=== PATIENT | male | born 1940 | race Caucasian/White ===

== ENCOUNTER 2019-08-05 12:22 | Day surgery (SDC) | payer MEDICARE, OTHER ==
[~2019-08-05 12:22] MED LIST: Lactated Ringers 1,000 ML IV SCH; Sodium Chloride 0.9% 10 ML Syringe FLUSH PRN
[2019-08-05] MEDS ORDERED: Midazolam 1 MG/ML 2 ML SDV ONE ×2 (14:25→14:27)
[2019-08-05] MEDS ORDERED: Propofol 200 MG/20 ML SDV ONE ×2 (14:25→14:27)
--- NOTE | 2019-08-05 14:27 | PCM.PN ---
- General Info Date of Service: 08/05/19 - Review of Systems Systems Review Comment:: 78 y/o male here for Colonoscopy. He has a history of colon polyps. His last colonoscopy was 5 years ago. the patient is medically stable to proceed today. I have reviewed his recent history and physical and no significant changes are noted. I discussed the proposed colonoscopy with the patient. Risks such as but not limited to bleeding and GI injury reviewed. He agrees to proceed. - Patient Data Vitals - Most Recent: Last Vital Signs Temp 99.0 F 08/05/19 13:10 Pulse 56 L 08/05/19 13:10 Resp 18 08/05/19 13:10 BP 145/64 H 08/05/19 13:10 Pulse Ox 96 08/05/19 13:10 Weight - Most Recent: 117.027 kg Med Orders - Current: Current Medications Lactated Ringer's (Ringers, Lactated) 1,000 mls @ 125 mls/hr IV ASDIRECTED [facility] Last Admin: 08/05/19 13:22 Dose: 125 mls/hr Sodium Chloride (Saline Flush) 10 ml FLUSH ASDIRECTED PRN PRN Reason: Keep Vein Open - Problem List Review Problem List Initiated/Reviewed/Updated: Yes - Assessment Assessment:: history of colon polyps - Plan Plan:: colonoscopy
--- NOTE | 2019-08-05 15:15 | PCM.OPNOTE ---
- General Post-Op/Procedure Note Date of Surgery/Procedure: 08/05/19 Operative Procedure(s): Colonoscopy with Polypectomy Findings: Multiple Colon Polyps Pre Op Diagnosis: history of colon polyps Post-Op Diagnosis: Colon Polyps Anesthesia Technique: MAC Primary Surgeon: Manny Odell Pathology: Colon Polyps EBL in mLs: 0 Complications: None Condition: Good
--- NOTE | 2019-08-05 19:41 | OR ---
Date of Procedure: 08/05/2019 PREOPERATIVE DIAGNOSIS: History of colon polyps. POSTOPERATIVE DIAGNOSES: Colon polyps. OPERATION PERFORMED: Colonoscopy with polypectomy. INDICATIONS FOR SURGERY: This 78-year-old male has a known history of colon polyps. He comes today for surveillance colonoscopy. FINDINGS: Three polyps were seen on today's exam. There is an 8 mm sessile polyp in the descending colon 50 cm from the anal verge. There is another proximally 1 cm sessile polyp noted at the hepatic flexure and a 7 mm semi- pedunculated polyp noted in the proximal transverse colon. The colon otherwise appears normal. DESCRIPTION OF PROCEDURE: The patient was taken to the operating room. He was given intravenous sedation and with him in the left lateral decubitus position, digital rectal exam was performed showing no rectal masses. The Olympus colonoscope was inserted into the rectum and retroflexed examination of the rectal canal was performed. The scope was then carefully advanced under direct visualization through the entire length of the colon until the cecum was reached. During insertion of the scope, the above-described polyps were identified. These were each removed with a cautery snare and retrieved into a polyp trap. The scope was able to be advanced to the cecum and cecal identity is confirmed by noting normal internal cecal anatomy including the appendiceal orifice and ileocecal valve. After examining the cecum, the scope was slowly withdrawn sequentially re-examining the colonic segments until the entire colon and rectum had been fully examined. The scope was removed and the patient was taken from the operating room in satisfactory condition. ESTIMATED BLOOD LOSS: 0. COMPLICATIONS: None. PROGNOSIS: Good. KSENIA Odell MD /[id number]
== END 2019-08-05 15:50 | disposition home or self-care (01) ==
LOC: LL.SDS 12:22
PROVIDERS: ATTEND Surgery
DX: Z12.11 Encounter for screening for malignant neoplasm of colon (principal); D12.4 Benign neoplasm of descending colon; D12.3 Benign neoplasm of transverse colon; J44.9 Chronic obstructive pulmonary disease, unspecified; I10 Essential (primary) hypertension; E78.5 Hyperlipidemia, unspecified; Z86.010 Personal history of colon polyps; Z79.82 Long term (current) use of aspirin; Z79.899 Other long term (current) drug therapy; Z79.1 Long term (current) use of non-steroidal anti-inflammatories (NSAID); Z87.891 Personal history of nicotine dependence
CPT/HCPCS: 00812; J2250; J2704; J7120

== ENCOUNTER 2020-05-07 16:14 | Emergency (ER) | payer MEDICARE, OTHER ==
[2020-05-07] MEDS ORDERED: Sodium Chloride 0.9% 10 ML Syringe FLUSH PRN (16:30)
[2020-05-07] MEDS ORDERED: Aspirin 81 MG Tab.Chew PO ONE (16:50)
--- NOTE | 2020-05-07 18:03 | EDM.PDOC ---
ED HPI GENERAL MEDICAL PROBLEM - General Chief Complaint: General Stated Complaint: DIZZINESS, WEAKNESS, CLAMMINESS Time Seen by Provider: 05/07/20 16:50 Source of Information: Reports: Patient, Family History Limitations: Reports: No Limitations - History of Present Illness INITIAL COMMENTS - FREE TEXT/NARRATIVE: brief episode of feeling clammy/mild nausea/dizzy/zoning out in front of TV movie that he and his were watching. noticed that he was sweating and asked him what was wrong. He answered he didn't feel right. She remembers that he then ate a few cookies from a tin sitting by his chair. They decided to bring him to the ER for evaluation. No other accompanying symptoms. He reports feeling back to baseline by time he arrived in ER. Also reports brief similar episode a week ago that resolve quickly. Normal day otherwise for patient. Has been feeling like usual self. No new meds/supplements. No sick contacts. No history of RI. - Related Data Allergies Allergy/AdvReac Type Severity Reaction Status Date / Time No Known Allergies Allergy Verified 02/10/14 09:57 Home Meds: Home Meds Aspirin 81 mg PO Q72H 02/16/14 [History] Fish Oil/[place]-3 Fatty Acids [Fish Oil 1,000 MG] 1 each PO DAILY 02/16/14 [History] NIFEdipine [Nifediac CC] 90 mg PO DAILY 02/16/14 [History] Arformoterol [Brovana] 1 puff INH BID 08/05/19 [History] Budesonide [Pulmicort] 0.5 mg IH BID 08/05/19 [History] Celecoxib [CeleBREX] 100 mg PO DAILY 08/05/19 [History] Furosemide 20 mg PO DAILY 08/05/19 [History] Losartan Potassium 100 mg PO DAILY 08/05/19 [History] Lutein/Minerals/Vit A,C & E [Ocuvite] 1 tab PO BID 08/05/19 [History] Nitroglycerin [Nitrostat] 0.4 mg SL ASDIRECTED 08/05/19 [History] Rosuvastatin Calcium 10 mg PO BEDTIME 08/05/19 [History] Ubidecarenone [Co Q-10] 100 mg PO DAILY 08/05/19 [History] Albuterol [Ventolin HFA] 2 puff IH Q4H PRN 05/07/20 [History] Past Medical History Cardiovascular History: Reports: High Cholesterol, Hypertension, Other (See Below) (was given Nitro to take PRN severe HTN during recent ER visit in [place]) Respiratory History: Reports: COPD Genitourinary History: Reports: Other (See Below) Other Genitourinary History: Elevated PSA/prostate CA Endocrine/Metabolic History: Reports: Obesity/BMI 30+ Social & Family History - Tobacco Use Smoking Status *Q: Former Smoker Used Tobacco, but Quit: Yes Month/Year Tobacco Last Used: 1 Second Hand Smoke Exposure: No - Caffeine Use Caffeine Use: Reports: Coffee - Alcohol Use Number of Drinks Per Day: 3 - Recreational Drug Use Recreational Drug Use: No ED ROS GENERAL - Review of Systems Review Of Systems: See Below Constitutional: Reports: Diaphoresis. Denies: Fever, Chills, Malaise, Weakness, Fatigue, Night Sweats, Decreased Appetite, Weight Loss, Weight Gain HEENT: Reports: No Symptoms. Denies: Vision Change Respiratory: Reports: No Symptoms, Other (has chronic baseline SOB due to COPD but this is unchanged). Denies: Wheezing, Pleuritic Chest Pain, Cough, Sputum, Hemoptysis Cardiovascular: Denies: Chest Pain, Lightheadedness, Palpitations, PND, Syncope Endocrine: Reports: No Symptoms GI/Abdominal: Denies: Abdominal Pain, Black Stool, Constipation, Diarrhea, Decreased Appetite, Difficulty Swallowing, Distension, Hematemesis, Hematochezia, Vomiting : Reports: No Symptoms Musculoskeletal: Reports: No Symptoms (no acute changes from baseline) Skin: Reports: Other (has some darkening of skin around toes) Neurological: Reports: Dizziness, Other (reports feeling it was hard to focus for 5-10 min at home prior to coming to ER. No focal neuro deficits however). Denies: Headache, Numbness, Pre-Existing Deficit, Seizure, Syncope, Tingling, Tremors, Trouble Speaking, Difficulty Walking, Change in Speech, Gait Disturbance Psychiatric: Reports: No Symptoms Hematologic/Lymphatic: Reports: No Symptoms ED EXAM, GENERAL - Physical Exam Exam: See Below Exam Limited By: No Limitations General Appearance: Alert, No Apparent Distress, Obese Eye Exam: Bilateral Eye: EOMI, PERRL Ears: Normal External Exam, Hearing Loss (hx of hearing loss bilat) Nose: No: Nasal Deformity, Nasal Swelling, Nasal Drainage Throat/Mouth: Normal Lips, Normal Voice, No Airway Compromise Head: Atraumatic, Normocephalic Neck: Supple, Non-Tender, Full Range of Motion. No: Carotid Bruit, Lymphadenopathy (L), Lymphadenopathy (R) Respiratory/Chest: No Respiratory Distress, No Accessory Muscle Use, Chest Non- Tender, Rales (sparse/bases). No: Rhonchi, Wheezing, Stridor, Accessory Muscle Use, Retractions Cardiovascular: Normal Peripheral Pulses, Regular Rate, Rhythm, No Edema, No Murmur GI/Abdominal: Normal Bowel Sounds, Soft, Non-Tender, No Distention (Male) Exam: Deferred Rectal (Males) Exam: Deferred Back Exam: Normal Inspection Extremities: Non-Tender, No Pedal Edema, Normal Capillary Refill Neurological: Alert, Oriented, CN II-XII Intact, Normal Cognition, No Mo tor/Sensory Deficits Psychiatric: Normal Affect, Normal Mood Skin Exam: Warm, Dry, Intact, No Rash, Other (Has some darkening of skin noted in spotty areas around distal forefoot/several toes) EKG INTERPRETATION EKG Date: 05/07/20 Time: 16:38 Rhythm: Other (Sinus rhythm) Rate (Beats/Min): 65 [place]: Normal P-Wave: Present QRS: Other (bifascicular block) ST-T: Other (no obvious changes suggestive of acute ischemia) QT: Normal Comparison: NA - No Prior EKG Course - Vital Signs Last Recorded V/S: Last Vital Signs Temp 36.6 C 05/07/20 16:20 Pulse 68 05/07/20 17:58 Resp 14 05/07/20 17:58 BP 164/77 H 05/07/20 17:58 Pulse Ox 98 05/07/20 17:58 - Orders/Labs/Meds Orders: Active Orders 24 hr Category Date Time Status Blood Glucose Check, Bedside [RC] ONETIME Care 05/07/20 16:15 Active Cardiac Monitoring [RC] . DIRECTED Care 05/07/20 17:08 Active EKG Documentation Completion [RC] ASDIRECTED Care 05/07/20 16:41 Active CXR [Chest 2V] [CR] Stat Exams 05/07/20 16:30 Ordered TSH ULTRASENSITIVE [CHEM] Routine Lab 05/07/20 18:43 Ordered Saline Lock Insert [OM.PC] Routine Oth 05/07/20 16:30 Ordered Labs: Laboratory Tests 05/07/20 05/07/20 05/07/20 Range/Units 16:30 16:30 16:30 WBC 5.3 (4.0-10.2) K/uL RBC 4.19 L (4.33-5.41) M/uL Hgb 12.6 L (13.1-16.8) g/dL Hct 38.6 L (39.0-49.0) % MCV 92.1 D (84.0-98.0) fL MCH 30.1 (28.2-33.3) pg MCHC 32.6 (31.7-36.0) g/dL RDW 13.6 (11.2-14.1) % Plt Count 140 L (150-350) K/uL Neut % (Auto) 64.7 (45.0-80.0) % Lymph % (Auto) 10.2 (10.0-50.0) % [place] % (Auto) 19.6 H (2.0-14.0) % Eos % (Auto) 5.1 H (0.0-5.0) % Baso % (Auto) 0.4 (0.0-2.0) % Neut # (Auto) 3.43 (1.40-7.00) K/uL Lymph # (Auto) 0.54 (0.50-3.50) K/uL [place] # (Auto) 1.04 H (0.00-1.00) K/uL Eos # (Auto) 0.27 (0.00-0.50) K/uL Baso # (Auto) 0.02 (0.00-0.20) K/uL D-Dimer, Quantitative 420 H (0-400) ng/mL Sodium 143 (136-145) mmol/L Potassium 4.0 (3.5-5.1) mmol/L Chloride 107 (98-107) mmol/L Carbon Dioxide 27.6 (21.0-32.0) mmol/L BUN 34 H (7-18) mg/dL Creatinine 1.33 H (0.51-1.17) mg/dL Est Cr Clr Drug Dosing 50.24 mL/min Estimated GFR (MDRD) 52 mL/min Glucose 79 (74-106) mg/dL Calcium 8.7 (8.5-10.1) mg/dL Magnesium 2.3 (1.8-2.4) mg/dL Total Bilirubin 0.4 (0.2-1.0) mg/dL AST 17 (15-37) U/L ALT 29 (12-78) U/L Alkaline Phosphatase 91 (46-116) IU/L Creatine Kinase 174 (26-308) U/L Creatine Kinase Index 3.1 H (0.0-2.5) % CK-MB (CK-2) 5.40 H* (0.00-3.60) ng/mL Troponin I 0.000 (0.000-0.056) ng/mL NT-Pro-B Natriuret Pep 371 H (0-125) pg/mL Total Protein 7.1 (6.4-8.2) g/dL Albumin 3.8 (3.4-5.0) g/dL Specimen Type Urine Color Urine Appearance Urine pH (5.0-9.0) Ur Specific [place] (1.005-1.030) Urine Protein (NEGATIVE) mg/dL Urine Glucose (UA) (NEGATIVE) mg/dL Urine Ketones (NEGATIVE) mg/dL Urine Occult Blood (NEGATIVE) Urine Nitrite (NEGATIVE) Urine Bilirubin (NEGATIVE) Urine Urobilinogen (0.2-1.0) E.U./dL Ur Leukocyte Esterase (NEGATIVE) Urine RBC /HPF Urine WBC /HPF Ur Epithelial Cells /LPF Urine Bacteria (NONE TO FEW) /HPF Urine Mucus (NEGATIVE) /LPF 05/07/20 Range/Units 17:30 WBC (4.0-10.2) K/uL RBC (4.33-5.41) M/uL Hgb (13.1-16.8) g/dL Hct (39.0-49.0) % MCV (84.0-98.0) fL MCH (28.2-33.3) pg MCHC (31.7-36.0) g/dL RDW (11.2-14.1) % Plt Count (150-350) K/uL Neut % (Auto) (45.0-80.0) % Lymph % (Auto) (10.0-50.0) % [place] % (Auto) (2.0-14.0) % Eos % (Auto) (0.0-5.0) % Baso % (Auto) (0.0-2.0) % Neut # (Auto) (1.40-7.00) K/uL Lymph # (Auto) (0.50-3.50) K/uL [place] # (Auto) (0.00-1.00) K/uL Eos # (Auto) (0.00-0.50) K/uL Baso # (Auto) (0.00-0.20) K/uL D-Dimer, Quantitative (0-400) ng/mL Sodium (136-145) mmol/L Potassium (3.5-5.1) mmol/L Chloride (98-107) mmol/L Carbon Dioxide (21.0-32.0) mmol/L BUN (7-18) mg/dL Creatinine (0.51-1.17) mg/dL Est Cr Clr Drug Dosing mL/min Estimated GFR (MDRD) mL/min Glucose (74-106) mg/dL Calcium (8.5-10.1) mg/dL Magnesium (1.8-2.4) mg/dL Total Bilirubin (0.2-1.0) mg/dL AST (15-37) U/L ALT (12-78) U/L Alkaline Phosphatase (46-116) IU/L Creatine Kinase (26-308) U/L Creatine Kinase Index (0.0-2.5) % CK-MB (CK-2) (0.00-3.60) ng/mL Troponin I (0.000-0.056) ng/mL NT-Pro-B Natriuret Pep (0-125) pg/mL Total Protein (6.4-8.2) g/dL Albumin (3.4-5.0) g/dL Specimen Type Urinblad Urine Color Yellow Urine Appearance Clear Urine pH 5.0 (5.0-9.0) Ur Specific [place] 1.020 (1.005-1.030) Urine Protein Negative (NEGATIVE) mg/dL Urine Glucose (UA) Negative (NEGATIVE) mg/dL Urine Ketones Negative (NEGATIVE) mg/dL Urine Occult Blood Negative (NEGATIVE) Urine Nitrite Negative (NEGATIVE) Urine Bilirubin Negative (NEGATIVE) Urine Urobilinogen 0.2 (0.2-1.0) E.U./dL Ur Leukocyte Esterase Negative (NEGATIVE) Urine RBC 0-5 /HPF Urine WBC 0-5 /HPF Ur Epithelial Cells Few /LPF Urine Bacteria Rare (NONE TO FEW) /HPF Urine Mucus Few H (NEGATIVE) /LPF Meds: Medications Discontinued Medications Generic Name Dose Route Start Last Admin Trade Name Augustineq PRN Reason Stop Dose Admin Aspirin 324 mg 05/07/20 16:50 05/07/20 16:57 Aspirin PO 05/07/20 16:51 324 mg ONETIME ONE Administration Sodium Chloride 10 ml 05/07/20 16:30 05/07/20 16:38 Saline Flush FLUSH 10 ml ASDIRECTED PRN Administration Keep Vein Open - Radiology Interpretation Free Text/Narrative:: Chest xray did not show acute changes/compared to previous films. No infectious process noted. No pneumothorax. - Re-Assessments/Exams Free Text/Narrative Re-Assessment/Exam: Patient remained symptom-free throughout stay in ER. No acute changes noted on EKG/chest film. Troponin negative. Episodic PVCs seen on telemetry. WBC normal. UA unremarkable. Blood sugar 79. Ck and CKMB elevated. Troponin negative. D-Dimer barely above normal. Mild renal dysfunction. Differential discussed with patient and included arrhythmia, RI, PE, TIA, elevated BP. Hypoglycemia is also possibility as blood sugar is 79 here and patient reports having cookies at home prior to coming to ER. Symptoms described by patient are consistent with episode of hypoglycemia. Eating the cookies after symptoms were experienced as he reports would have helped to correct hypoglycemia if that was cause. No other neuro symptoms or focal weakness noted by patient//staff. CT/MRI of head discussed as was CT scan to rule out PE and patient declined these at this time. He also declined being admitted observation for ongoing telemetry and repeat troponin/CKMBs. Patient and his preferred to have him discharged from the ER but said that they would remain vigilant for any acute changes and return of concerns arose. Extensive time spend reviewing precautions/risks/concerning symptoms that they should be alert for and return for re-evaluation if manifested. He is agreeable with following up with primary in the next few days to get labs rechecked and to discuss arranging for updated stress test/additional testing as needed. Departure - Departure Time of Disposition: 17:57 Disposition: Home, Self-Care 01 Clinical Impression: Episode of dizziness - Discharge Information *PRESCRIPTION DRUG MONITORING PROGRAM REVIEWED*: Not Applicable *COPY OF PRESCRIPTION DRUG MONITORING REPORT IN PATIENT MAHAMED: Not Applicable Instructions: Dizziness, [id number] Referrals: Shagufta Mireles NP [Primary Care Provider] - Forms: ED Department Discharge Additional Instructions: Carefully observe for changes over the next few days. Return to ER if you have worsening symptoms, chest pain, shortness of breath. If you change your mind and want to be admitted on observation overnight for cardiac monitoring/repeat troponin testing you may certainly return to the ER. Recommend following up with your primary provider this week and get D-dimer rechecked. Consider chest CT to rule out PE as we discussed if it becomes more elevated. Chest CT recommended if any shortness of breath/dizziness/chest pain is experienced given the mild elevation noted tonight. Also discuss updated stress testing. Tell them your Ck and CKMB were elevated tonight on your tests so that they can record that change. Avoid strenuous activity/take it easy for the next few days. If previous feeling of dizziness/nausea returns check blood sugar and BP as soon as possible. Sepsis Event Note (ED) - Evaluation Sepsis Screening Result: No Definite Risk - Focused Exam Vital Signs: Vital Signs Temp Pulse Resp BP Pulse Ox 05/07/20 17:58 68 14 164/77 H 98 05/07/20 17:54 64 16 162/65 H 98 05/07/20 17:41 64 16 161/71 H 98 05/07/20 17:18 67 22 H 166/72 H 98 05/07/20 17:15 64 05/07/20 17:03 67 18 166/69 H 99 05/07/20 16:50 69 16 152/62 H 98 05/07/20 16:35 72 18 142/66 H 98 05/07/20 16:20 36.6 C 70 14 165/64 H 98 - My Orders Last 24 Hours: My Active Orders 05/07/20 16:15 Blood Glucose Check, Bedside [RC] ONETIME 05/07/20 16:30 CXR [Chest 2V] [CR] Stat Saline Lock Insert [OM.PC] Routine 05/07/20 16:41 EKG Documentation Completion [RC] ASDIRECTED 05/07/20 17:08 Cardiac Monitoring [RC] . DIRECTED 05/07/20 18:43 TSH ULTRASENSITIVE [CHEM] Routine - Assessment/Plan Last 24 Hours: My Active Orders 05/07/20 16:15 Blood Glucose Check, Bedside [RC] ONETIME 05/07/20 16:30 CXR [Chest 2V] [CR] Stat Saline Lock Insert [OM.PC] Routine 05/07/20 16:41 EKG Documentation Completion [RC] ASDIRECTED 05/07/20 17:08 Cardiac Monitoring [RC] . DIRECTED 05/07/20 18:43 TSH ULTRASENSITIVE [CHEM] Routine
== END 2020-05-07 18:25 | disposition home or self-care (01) ==
LOC: LL.ED 16:14
DX: R42 Dizziness and giddiness (principal); I10 Essential (primary) hypertension; E78.00 Pure hypercholesterolemia, unspecified; J44.9 Chronic obstructive pulmonary disease, unspecified; E66.9 Obesity, unspecified; Z68.34 Body mass index [BMI] 34.0-34.9, adult; I45.2 Bifascicular block; Z87.891 Personal history of nicotine dependence; Z79.82 Long term (current) use of aspirin; Z79.899 Other long term (current) drug therapy
CPT/HCPCS: 36415; 71046; 80053; 81001; 82550; 82553; 83735; 83880; 84443; 84484; 85025; 85379; 93005; 93010; 99284; 99284-25; A9270-GY

== ENCOUNTER 2021-05-27 00:40 | Emergency (ER) | payer MEDICARE, OTHER ==
--- NOTE | 2021-05-27 01:05 | EDM.PDOC ---
ED HPI GENERAL MEDICAL PROBLEM - General Chief Complaint: Respiratory Problem Stated Complaint: right sided chest pain Time Seen by Provider: 05/27/21 00:50 Source of Information: Reports: Patient, EMS History Limitations: Reports: No Limitations - History of Present Illness INITIAL COMMENTS - FREE TEXT/NARRATIVE: Patient is 10 days post op left ankle surgery. He states he has been using a walker with limited time frame, mainly to transfer himself in to a wheelchair to get around the house. He is not on a blood thinner, taking just a full aspirin daily. History of asymptomatic PE in the past treated with eliquis. He developed with sided chest pain a few days ago, worsening over the last several days, taking tylenol, motrin for it. NO fevers or chills, but the pain was progressively worse so called EMS. Transferred by EMS, O2 sat 93% room air, they did give him oxygen for comfort, IV was started. Rest of vitals normal. followed behind and is present in the ED. NO chest trauma, has been vaccinated for covid Duration: Getting Worse Location: Reports: Chest Quality: Reports: Burning, Sharp, Stabbing Improves with: Reports: None Worsens with: Reports: Breathing, Movement Associated Symptoms: Denies: Cough, cough w sputum, Diaphoresis, Fever/Chills Treatments [employer]: Reports: Acetaminophen Right Chest Pain Score (Numeric/FACES): 8 - Related Data Allergies Allergy/AdvReac Type Severity Reaction Status Date / Time No Known Allergies Allergy Verified 05/27/21 01:27 Home Meds: Home Meds Aspirin 81 mg PO Q72H 02/16/14 [History] Fish Oil/[place]-3 Fatty Acids [Fish Oil 1,000 MG] 1 each PO DAILY 02/16/14 [History] NIFEdipine [Nifediac CC] 90 mg PO DAILY 02/16/14 [History] Arformoterol [Brovana] 1 puff INH BID 08/05/19 [History] Budesonide [Pulmicort] 0.5 mg IH BID 08/05/19 [History] Celecoxib [CeleBREX] 100 mg PO DAILY 08/05/19 [History] Furosemide 20 mg PO DAILY 08/05/19 [History] Losartan Potassium 100 mg PO DAILY 08/05/19 [History] Lutein/Minerals/Vit A,C & E [Ocuvite] 1 tab PO BID 08/05/19 [History] Nitroglycerin [Nitrostat] 0.4 mg SL ASDIRECTED 08/05/19 [History] Rosuvastatin Calcium 10 mg PO BEDTIME 08/05/19 [History] Ubidecarenone [Co Q-10] 100 mg PO DAILY 08/05/19 [History] Albuterol [Ventolin HFA] 2 puff IH Q6HR PRN 05/07/20 [History] Apixaban [Eliquis] 5 mg PO BID 30 Days #84 tablet 05/27/21 [Rx] Metoprolol Succinate [Toprol XL 100mg] 100 mg PO DAILY 05/27/21 [History] Potassium Gluconate [Potassium] 99 mg PO DAILY 05/27/21 [History] Past Medical History Cardiovascular History: Reports: High Cholesterol, Hypertension, Other (See Below) (was given Nitro to take PRN severe HTN during recent ER visit in [place]) Respiratory History: Reports: COPD Genitourinary History: Reports: Other (See Below) Other Genitourinary History: Elevated PSA/prostate CA Endocrine/Metabolic History: Reports: Obesity/BMI 30+ - Past Surgical History Musculoskeletal Surgical History: Reports: Other (See Below) (left ankle surgery 05/2021) Social & Family History - Caffeine Use Caffeine Use: Reports: Coffee - Recreational Drug Use Recreational Drug Use: No Drug Use in Last 12 Months: No ED ROS GENERAL - Review of Systems Review Of Systems: See Below Constitutional: Reports: No Symptoms. Denies: Fever, Chills, Malaise, Weakness HEENT: Denies: Throat Swelling Respiratory: Reports: Pleuritic Chest Pain. Denies: Shortness of Breath, Wheezing, Cough Cardiovascular: Reports: Chest Pain. Denies: Blood Pressure Problem, Claudication, Dyspnea on Exertion, Lightheadedness Endocrine: Reports: No Symptoms GI/Abdominal: Reports: No Symptoms. Denies: Abdominal Pain, Constipation, Diarrhea, Nausea, Vomiting Musculoskeletal: Reports: Other (left ankle pain after surgery) Neurological: Reports: No Symptoms Psychiatric: Reports: No Symptoms Hematologic/Lymphatic: Reports: No Symptoms ED EXAM, GENERAL - Physical Exam Exam: See Below Exam Limited By: No Limitations General Appearance: Alert, WD/WN, No Apparent Distress Eye Exam: Bilateral Eye: EOMI, Normal Inspection, PERRL Nose: Normal Inspection, Normal Mucosa, No Blood Throat/Mouth: Normal Inspection, Normal Lips, Normal Teeth, Normal Voice Head: Atraumatic, Normocephalic Neck: Normal Inspection, Supple, Non-Tender Respiratory/Chest: No Respiratory Distress, Splinting, Other (tenderness to palaption of the right chest, no crepitus, no lesions or rashes) GI/Abdominal: Normal Bowel Sounds, Soft Extremities: Other (splint in place left lower leg, no swelling of the toes or behing the knee) #1 Interpretation EKG Date: 05/27/21 Time: 01:55 Rhythm: NSR Rate (Beats/Min): 77 P-Wave: Present QRS: RBBB ST-T: Normal Comparison: No Change (compared to 04/2021) Course - Vital Signs Last Recorded V/S: Last Vital Signs Temp 36.9 C 05/27/21 00:45 Pulse 74 05/27/21 00:45 Resp 14 05/27/21 00:45 BP 162/63 H 05/27/21 00:45 Pulse Ox 94 L 05/27/21 00:45 - Orders/Labs/Meds Orders: Active Orders 24 hr Category Date Time Status EKG Documentation Completion [RC] ASDIRECTED Care 05/27/21 00:51 Active PE Chest [Ang Chest] [CT] Stat Exams 05/27/21 00:50 Taken Enoxaparin [Lovenox] Med 05/27/21 02:59 Once 130 mg SUBCUT ONETIME ONE Medication Orders Enoxaparin Sodium (Enoxaparin 100 Mg/1 Ml Syringe) 130 mg SUBCUT ONETIME ONE Stop: 05/27/21 03:00 Labs: Laboratory Tests 05/27/21 05/27/21 05/27/21 Range/Units 02:08 02:08 02:08 WBC 10.5 H (4.0-10.2) K/uL RBC 4.27 L (4.33-5.41) M/uL Hgb 12.8 L (13.1-16.8) g/dL Hct 39.4 (39.0-49.0) % MCV 92.3 (84.0-98.0) fL MCH 30.0 (28.2-33.3) pg MCHC 32.5 (31.7-36.0) g/dL RDW 13.8 (11.2-14.1) % Plt Count 194 (150-350) K/uL Neut % (Auto) 82.1 H (45.0-80.0) % Lymph % (Auto) 3.1 L (10.0-50.0) % Nolan % (Auto) 12.3 (2.0-14.0) % Eos % (Auto) 2.3 (0.0-5.0) % Baso % (Auto) 0.2 (0.0-2.0) % Neut # (Auto) 8.61 H (1.40-7.00) K/uL Lymph # (Auto) 0.32 L (0.50-3.50) K/uL Nolan # (Auto) 1.29 H (0.00-1.00) K/uL Eos # (Auto) 0.24 (0.00-0.50) K/uL Baso # (Auto) 0.02 (0.00-0.20) K/uL Sodium 145 (136-145) mmol/L Potassium 4.4 (3.5-5.1) mmol/L Chloride 108 H (98-107) mmol/L Carbon Dioxide 26.9 (21.0-32.0) mmol/L Anion Gap 14.5 (7-15) meq/L BUN 26 H (7-18) mg/dL Creatinine 1.38 H (0.51-1.17) mg/dL Est Cr Clr Drug Dosing 44.82 mL/min Estimated GFR (MDRD) 50 mL/min Glucose 137 H (70-99) mg/dL Lactic Acid 0.9 (0.4-2.0) mmol/L Calcium 8.4 L (8.5-10.1) mg/dL Total Bilirubin 0.4 (0.2-1.0) mg/dL AST 14 L (15-37) U/L ALT 32 (12-78) U/L Alkaline Phosphatase 105 (46-116) IU/L Troponin I High Sens 9 (<=76) ng/L C-Reactive Protein 5.9 H (<=0.9) mg/dL Total Protein 7.3 (6.4-8.2) g/dL Albumin 3.5 (3.4-5.0) g/dL Meds: Medications Generic Name Dose Route Start Last Admin Trade Name Freq PRN Reason Stop Dose Admin Enoxaparin Sodium 130 mg 05/27/21 02:59 Enoxaparin 100 Mg/1 Ml Syringe SUBCUT 05/27/21 03:00 ONETIME ONE Discontinued Medications Generic Name Dose Route Start Last Admin Trade Name Augustineq PRN Reason Stop Dose Admin Iopamidol 100 ml 05/27/21 01:07 05/27/21 02:32 Iopamidol 755 Mg/Ml 100 Ml Bottle IVPUSH 05/27/21 01:08 100 ml ONETIME STA Administration - Radiology Interpretation Free Text/Narrative:: small acute emboli in the segmental and subsegmental branches supplying the right middle and right lower lobe, minimal plerual effusion. developing artery infarct in the right lower lobe. No evidence of right heart strain. no thoracic aorta dissection. Discussed with the radiologist. - Re-Assessments/Exams Free Text/Narrative Re-Assessment/Exam: 05/27/21 01:18 Will get an EKG< labs, and chest ct pe protocol 05/27/21 02:00 Lab had not been called, contacted at this time. CT scanner with problems and i s being worked on. Delay in care, patient is stable 05/27/21 03:18 Discussion with the patient about the pulmonary emboli. Will give lovenox 1 mg/kg rounding up to 130 mg subcut. Will give doses of 10 mg eliquis bid for tomorrow as pharmacy is closed. Will have scripts for 10 mg bid for 6 more days then 5 mg bid . one refill. Has an incentive spirometer at home. Will use, 3 tiems a day, deep breathing. REturn for fever, worsening pain, increased shortness of breath. Given fall and bleeding precautions. Will notify surgeon as to blood clot. will monitor leg for swelling or bleeding. Follow up with PCP. Departure - Departure Time of Disposition: 03:00 Disposition: Home, Self-Care 01 Clinical Impression: Pulmonary embolism and infarction, Pleural effusion associated with pulmonary infection - Discharge Information *PRESCRIPTION DRUG MONITORING PROGRAM REVIEWED*: Not Applicable *COPY OF PRESCRIPTION DRUG MONITORING REPORT IN PATIENT MAHAMED: Not Applicable Prescriptions: Apixaban [Eliquis] 5 mg PO BID 30 Days #84 tablet Instructions: Pulmonary Embolism, Pleural Effusion, Bleeding Precautions When on Anticoagulant Therapy, Pediatric Forms: ED Department Discharge Additional Instructions: You have several blood clots in the right lung and a small area of infarction ( from older blood clot) in the right lung. Small amount of fluid around the right lung. You were given an injection of lovenox tonight and eliquis tablets for tomorrow. TAke your first dose of eliquis 10 mg at noon ( this is two tablets ) and the next dose at bedtime of 10 mg. Fill your prescription Friday and you will take 10 mg twice daily through 06/02 then 5 mg twice daily . You will need to be on this blood thinner from 3-6 months. Close follow up with PCP is requested. Make appointment. There is a small amount of fluid around the lung due to the reaction from the blood clots. This can get worse. REturn to the ED for fever, increased shortness of breath, worsening pain. Use the incentive spirometer that you have at home , 10 repetitions at least three times a day. Take deep breathes and cough frequently. Use the pain medication you have as needed. Notify your surgeon of the blood clot as it may cause bleeding at the surgical site with the starting of the blood thinners. Watch for the splint to become too tight. If this occurs, remove it to check the wound and for swelling and bleeding You were given bleeding precautions. Remember that you will bleed easily and for long periods of time. Present to the ED for bleeding that will not stop. Also present to the ER for any head trauma as bleeding can occur easily with minor trauma and progress rapidly. Sepsis Event Note (ED) - Focused Exam Vital Signs: Vital Signs Temp Pulse Resp BP Pulse Ox 05/27/21 00:45 36.9 C 74 14 162/63 H 94 L - My Orders Last 24 Hours: My Active Orders 05/27/21 00:50 PE Chest [Ang Chest] [CT] Stat 05/27/21 00:51 EKG Documentation Completion [RC] ASDIRECTED 05/27/21 02:59 Enoxaparin [Lovenox] 130 mg SUBCUT ONETIME ONE - Assessment/Plan Last 24 Hours: My Active Orders 05/27/21 00:50 PE Chest [Ang Chest] [CT] Stat 05/27/21 00:51 EKG Documentation Completion [RC] ASDIRECTED 05/27/21 02:59 Enoxaparin [Lovenox] 130 mg SUBCUT ONETIME ONE
[2021-05-27] MEDS: Iopamidol 755 Mg/ML 100 ML Bottle IVPUSH STA (02:32)
[2021-05-27 02:35] LABS: ANION GAP 14.5 meq/L (7-15)
[2021-05-27] MEDS: Apixaban 5 MG Tab PO ONE ×2 (03:27→03:28)
[2021-05-27] MEDS: Enoxaparin 100 MG/1 ML Syringe SUBCUT ONE (03:28)
== END 2021-05-27 03:45 | disposition home or self-care (01) ==
LOC: LL.ED 00:40
DX: I26.99 Other pulmonary embolism without acute cor pulmonale (principal); J18.9 Pneumonia, unspecified organism; J91.8 Pleural effusion in other conditions classified elsewhere; I10 Essential (primary) hypertension; E78.00 Pure hypercholesterolemia, unspecified; J44.9 Chronic obstructive pulmonary disease, unspecified; E66.9 Obesity, unspecified; Z79.82 Long term (current) use of aspirin; Z98.890 Other specified postprocedural states; Z79.899 Other long term (current) drug therapy; Z68.35 Body mass index [BMI] 35.0-35.9, adult
CPT/HCPCS: 36415; 71275; 80053; 83605; 84484; 85025; 86140; 93005; 93010; 99284; A9270; J1650; Q9967; 96372; 99285-25

== ENCOUNTER 2022-05-18 17:06 | Inpatient (IN) | payer MEDICARE, OTHER ==
[2022-05-18] MEDS ORDERED: Lactated Ringers 1,000 ML IV SCH ×2 (17:45→18:15)
[2022-05-18 18:14] LABS: ANION GAP 10.2 meq/L (7-15)
[2022-05-18] MEDS ORDERED: Furosemide 40 MG/4 ML VIAL IVPUSH ONE (18:28)
[2022-05-18] MEDS: Sodium Chloride 0.9% 10 ML Syringe FLUSH PRN (18:41)
[2022-05-18] MEDS ORDERED: Vancomycin 2 GM in Sodium Chloride 0.9% 500 ML IV ONE (19:00)
[2022-05-18] MEDS ORDERED: Acetaminophen 325 MG Tab PO PRN (21:41)
[2022-05-18] MEDS ORDERED: Polyethylene Glycol 3350 Powder 17 GM Packet PO PRN (21:41)
[2022-05-18] MEDS ORDERED: Ondansetron 4 MG/2 ML SDV IVPUSH PRN (21:41)
[2022-05-18] MEDS ORDERED: Albuterol 6.7 GM Inhaler INH PRN (21:43)
[2022-05-18] MEDS ORDERED: hydrALAZINE 50 MG Tab PO PRN (21:47)
[2022-05-18] MEDS: Budesonide 0.5 MG/2 ML Neb Susp INH SCH (22:51)
[2022-05-18] MEDS: Apixaban 5 MG Tab PO SCH (22:51)
[2022-05-18] MEDS: Arformoterol 15 MCG/2 ML Neb Soln INH SCH (22:51)
[2022-05-18] MEDS: Losartan 50 MG Tab PO SCH (22:52)
[2022-05-19] MEDS: Potassium Chloride 10 MEQ Tab.ER PO SCH ×2 (07:54→17:42)
[2022-05-19] MEDS: Apixaban 5 MG Tab PO SCH ×2 (07:54→17:42)
[2022-05-19] MEDS: NIFEdipine 30 MG Tab.ER PO SCH (07:55)
[2022-05-19] MEDS: Losartan 50 MG Tab PO SCH (07:55)
[2022-05-19] MEDS: Fish Oil/Omega-3 Fatty Acids 1 Gm Cap PO SCH (07:56)
[2022-05-19] MEDS: Metoprolol Succinate 50 MG Tab.ER PO SCH (07:56)
[2022-05-19] MEDS: Furosemide 40 MG/4 ML VIAL IVPUSH SCH ×2 (07:57→17:43)
[2022-05-19] MEDS: Sodium Chloride 0.9% 10 ML Syringe FLUSH PRN ×3 (07:58→17:45)
[2022-05-19] MEDS: Arformoterol 15 MCG/2 ML Neb Soln INH SCH ×2 (08:00→17:47)
[2022-05-19] MEDS: Budesonide 0.5 MG/2 ML Neb Susp INH SCH ×2 (08:01→17:47)
[2022-05-19 08:39] LABS: ANION GAP 6.6 meq/L (7-15)
[2022-05-19] MEDS ORDERED: Rosuvastatin 10 MG Tab PO SCH (20:00)
[2022-05-20 07:49] LABS: ANION GAP 7.6 meq/L (7-15)
[2022-05-20] MEDS: NIFEdipine 30 MG Tab.ER PO SCH (07:58)
[2022-05-20] MEDS: Metoprolol Succinate 50 MG Tab.ER PO SCH (07:59)
[2022-05-20] MEDS: Potassium Chloride 10 MEQ Tab.ER PO SCH (07:59)
[2022-05-20] MEDS: Apixaban 5 MG Tab PO SCH (07:59)
[2022-05-20] MEDS: Fish Oil/Omega-3 Fatty Acids 1 Gm Cap PO SCH (07:59)
[2022-05-20] MEDS: Budesonide 0.5 MG/2 ML Neb Susp INH SCH (07:59)
[2022-05-20] MEDS: Losartan 50 MG Tab PO SCH (07:59)
[2022-05-20] MEDS: Furosemide 40 MG/4 ML VIAL IVPUSH SCH (08:00)
[2022-05-20] MEDS: Arformoterol 15 MCG/2 ML Neb Soln INH SCH (08:00)
[2022-05-20] MEDS: Sodium Chloride 0.9% 10 ML Syringe FLUSH PRN (08:01)
== END 2022-05-20 13:15 | disposition home or self-care (01) | DRG 602 ==
LOC: LL.ED 17:06 → LL.MS 19:00
PROVIDERS: ADMIT Hospitalist; ATTEND Hospitalist
DX: L03.115 Cellulitis of right lower limb (principal); I11.0 Hypertensive heart disease with heart failure; I50.33 Acute on chronic diastolic (congestive) heart failure; I13.0 Hypertensive heart and chronic kidney disease with heart failure and stage 1 through stage 4 chronic kidney disease, or unspecified chronic kidney disease; H91.90 Unspecified hearing loss, unspecified ear; G47.30 Sleep apnea, unspecified; H54.7 Unspecified visual loss; E78.00 Pure hypercholesterolemia, unspecified; M54.9 Dorsalgia, unspecified; M19.90 Unspecified osteoarthritis, unspecified site; E11.40 Type 2 diabetes mellitus with diabetic neuropathy, unspecified; Z66 Do not resuscitate; G89.29 Other chronic pain; J44.9 Chronic obstructive pulmonary disease, unspecified; G47.33 Obstructive sleep apnea (adult) (pediatric); E11.42 Type 2 diabetes mellitus with diabetic polyneuropathy; E55.9 Vitamin D deficiency, unspecified; N40.0 Benign prostatic hyperplasia without lower urinary tract symptoms; E87.6 Hypokalemia; N18.30 Chronic kidney disease, stage 3 unspecified; E11.22 Type 2 diabetes mellitus with diabetic chronic kidney disease; F10.20 Alcohol dependence, uncomplicated; Z79.82 Long term (current) use of aspirin; Z79.899 Other long term (current) drug therapy; Z79.51 Long term (current) use of inhaled steroids; Z86.711 Personal history of pulmonary embolism; Z79.01 Long term (current) use of anticoagulants; Z86.718 Personal history of other venous thrombosis and embolism; Z85.46 Personal history of malignant neoplasm of prostate; Z87.891 Personal history of nicotine dependence
CPT/HCPCS: 36415; 71045; 80048; 80053; 80202; 83605; 83735; 83880; 85025; 85027; 86140; 87040; 87070; 87205; 93005; 94640; A9270-GY; J1940; J3370; J3490; J7040; J7050; J7120

== ENCOUNTER 2023-03-10 17:09 | Emergency (ER) | payer MEDICARE, OTHER ==
[2023-03-10 17:40] LABS: BASOPHILS ABSOLUTE AUTO 0.03 K/uL (0.00-0.20); BASOPHILS PERCENT AUTO 0.6 % (0.0-2.0); EOSINOPHILS ABSOLUTE AUTO 0.46 K/uL (0.00-0.50); EOSINOPHILS PERCENT AUTO 9.9 % (0.0-5.0); HEMATOCRIT 39.5 % (39.0-49.0); HEMOGLOBIN 13.1 g/dL (13.1-16.8); LYMPHOCYTES ABSOLUTE AUTO 0.52 K/uL (0.50-3.50); LYMPHOCYTES PERCENT AUTO 11.2 % (10.0-50.0); MEAN CORPUSCULAR HEMOGLOBIN 31.3 pg (28.2-33.3); MEAN CORPUSCULAR HGB CONC 33.2 g/dL (31.7-36.0); MEAN CORPUSCULAR VOLUME 94.3 fL (84.0-98.0); MONOCYTES ABSOLUTE AUTO 0.83 K/uL (0.00-1.00); MONOCYTES PERCENT AUTO 17.9 % (2.0-14.0); NEUTROPHILS ABSOLUTE AUTO 2.79 K/uL (1.40-7.00); NEUTROPHILS PERCENT AUTO 60.4 % (45.0-80.0); PLATELET COUNT,PLT 153 K/uL (150-350); RED BLOOD CELL COUNT 4.19 M/uL (4.33-5.41); RED CELL DISTRIBUTION WIDTH 13.1 % (11.2-14.1); WHITE BLOOD CELL COUNT,WBC 4.6 K/uL (4.0-10.2)
[2023-03-10 17:55] LABS: ALBUMIN 3.7 g/dL (3.4-5.0); ANION GAP 9.6 meq/L (7-15); BILIRUBIN TOTAL 0.4 mg/dL (0.2-1.0); CALCIUM 8.9 mg/dL (8.5-10.1); CARBON DIOXIDE,CO2 28.4 mmol/L (21.0-32.0); CREATININE 2.06 mg/dL (0.51-1.17); EST CRCL DRUG DOSING (CG) 29.04 mL/min; POTASSIUM,K 3.8 mmol/L (3.5-5.1); PROTEIN TOTAL,TP 7.2 g/dL (6.4-8.2)
== END 2023-03-10 18:03 | disposition home or self-care (01) ==
LOC: LL.ED 17:09
DX: M79.602 Pain in left arm (principal); E78.00 Pure hypercholesterolemia, unspecified; I11.0 Hypertensive heart disease with heart failure; I50.9 Heart failure, unspecified; J44.9 Chronic obstructive pulmonary disease, unspecified; M19.90 Unspecified osteoarthritis, unspecified site; E11.40 Type 2 diabetes mellitus with diabetic neuropathy, unspecified; E66.9 Obesity, unspecified; Z68.37 Body mass index [BMI] 37.0-37.9, adult; Z86.711 Personal history of pulmonary embolism; Z79.899 Other long term (current) drug therapy; Z79.01 Long term (current) use of anticoagulants; W01.198A Fall on same level from slipping, tripping and stumbling with subsequent striking against other object, initial encounter; Y92.000 Kitchen of unspecified non-institutional (private) residence as the place of occurrence of the external cause
CPT/HCPCS: 36415; 70450; 80053; 85025; 99284